=== PATIENT | male | born 1980 | race Hispanic/Latino ===

== ENCOUNTER 2021-03-18 09:57 | Emergency (ER) | payer OTHER, SELFPAY ==
[2021-03-18 10:01] VITALS: BP 148/94; PULSE 68; RESP 16; TEMP 36.8; O2SAT 99
--- NOTE | 2021-03-18 10:15 | ED.GENADULT ---
HPI - General Adult General Chief complaint: Extremity Problem,Nontraumatic Stated complaint: knee pain Time Seen by Provider: 03/18/21 10:14 Source: patient and family ( is interpreting) Mode of arrival: ambulatory Limitations: no limitations History of Present Illness HPI narrative: Patient is here for chronic right knee pain. He has been here in the past for same. At this time there is minimal swelling but he is concerned about the popping and grinding he hears when he squats. Onset (ago): month(s) Radiation: non-radiation Severity: mild Quality: aching Pain Consistency: intermittent Relieving factors: rest Exacerbating factors: movement Associated symptoms: denies other symptoms Related Data Home Medications Medication Instructions Recorded Confirmed No Home Medications 03/18/21 03/18/21 Allergies Allergy/AdvReac Type Severity Reaction Status Date / Time No Known Allergies Allergy Verified 03/18/21 10:08 Review of Systems Review of Systems: All systems reviewed & are unremarkable except as noted in HPI and below [facility] Social History Social History (Updated 03/18/21 @ 10:34 by Yolanda Borrego PA-C) Smoking status: Never smoker Alcohol intake: current Alcohol use details: occasional Substance use: never Living arrangements: with family Occupation/Education: occupation Additional occupation/education comments: Works in a [employer]. Exam Const: General: healthy appearing, no acute distress and alert Orientation/consciousness: patient oriented x3 Eyes: Pupils: Equal, round and reactive pupils present Resp: Effort & Inspection: normal respiratory effort Skin: General skin exam: normal color Extrem: General: normal to inspection Right lower extremity: normal to inspection, full ROM, normal capillary refill and knee Details: swelling Location: of the patella, knee ligament exam normal and crepitus (with deep flexion/extension) Location: at the kneww Course Course Emergency Course: Exam is consistent with arthritic changes. Patient has no history of trauma or sports related injury. Discussed the need for support while working using a knee sleeve. Anti-inflammatories both oral and topical. Follow-up with her primary care physician or orthopedic surgeon if needed. Vital Signs Vital signs: Vital Signs Temperature 36.8 C 03/18/21 10:01 Pulse Rate 68 03/18/21 10:01 Respiratory Rate 16 03/18/21 10:01 Blood Pressure 148/94 H 03/18/21 10:01 Pulse Oximetry 99 03/18/21 10:01 Temperature 36.8 C 03/18/21 10:01 Pulse Rate 68 03/18/21 10:01 Respiratory Rate 16 03/18/21 10:01 Blood Pressure 148/94 H 03/18/21 10:01 Pulse Oximetry 99 03/18/21 10:01 Medical Decision Making Vital Signs Vital Signs: Vital Signs Temperature 36.8 C 03/18/21 10:01 Pulse Rate 68 03/18/21 10:01 Respiratory Rate 16 03/18/21 10:01 Blood Pressure 148/94 H 03/18/21 10:01 Pulse Oximetry 99 03/18/21 10:01 Temperature 36.8 C 03/18/21 10:01 Pulse Rate 68 03/18/21 10:01 Respiratory Rate 16 03/18/21 10:01 Blood Pressure 148/94 H 03/18/21 10:01 Pulse Oximetry 99 03/18/21 10:01 Discharge Plan Discharge Clinical Impression: Arthritis of knee, degenerative Qualifiers: Osteoarthritis type: primary Laterality: right Qualified Code(s): M17.11 - Unilateral primary osteoarthritis, right knee Patient Disposition: Home, Self-Care Condition: Stable Instructions: Antibiotic Form, Arthritis (ED) Additional Instructions: Please purchase a knee sleeve and wear when working or walking long distances. Ice your knee 20 minutes at a time several times a day as needed for pain. You may take ibuprofen or Tylenol for the pain, you may also use [id number] anti-inflammatory gel such as Voltaren. Uses recommended on the package. Follow-up with your primary care physician as needed Patient Language: Samoan Prescriptions: No Act
== END 2021-03-18 11:08 | disposition home or self-care (01) ==
PROVIDERS: Emergency Provider Emergency Medicine; PCP Registered Nurse
DX: M17.11 Unilateral primary osteoarthritis, right knee (principal)
CPT/HCPCS: 99281